=== PATIENT | female | born 1960 | race African-American/Black ===

== ENCOUNTER 2017-03-21 12:23 | Emergency (ER) | payer MEDICAID ==
[~2017-03-21] VITALS: Ht 160 cm; Wt 66.0 kg
[~2017-03-21 12:23] MED LIST: B50; HYDR-3515; SERT50TA; TRAM50TA3
[2017-03-21] MEDS ORDERED: LIDOCAINE HCL 1% 20ML VIAL (Pyxis) INJ MC ONE (13:00)
[2017-03-21] MEDS ORDERED: CEFTRIAXONE SODIUM 1 G/VIAL IM ONE (13:00)
[2017-03-21] MEDS ORDERED: METRONIDAZOLE 500MG TABLET PO ONE (13:15)
[2017-03-21] MEDS ORDERED: TETANUS, DIPHTHERIA, PERTUSSIS VAC/PF 0.5ML (>7YR OLD) IM ONE (13:30)
[2017-03-21 14:15] VITALS: BP 130/80
== END 2017-03-21 15:50 | disposition home or self-care (01) ==
LOC: ER 13:31
DX: S81.852A Open bite, left lower leg, initial encounter (principal); Y04.1XXA Assault by human bite, initial encounter; Y93.89 Activity, other specified; Y92.89 Other specified places as the place of occurrence of the external cause; Y99.8 Other external cause status; Z23 Encounter for immunization; F17.200 Nicotine dependence, unspecified, uncomplicated
CPT/HCPCS: 90471; 90715; 96372; 99284; J0696; J3490; Z7610

== ENCOUNTER 2018-01-30 20:38 | Emergency (ER) | payer MEDICAID ==
[~2018-01-30] VITALS: Ht 160 cm; Wt 67.0 kg
[2018-01-30 21:58] VITALS: BP 155/76
== END 2018-01-30 23:45 | disposition left against medical advice (07) ==
LOC: ER 23:24
DX: Z53.21 Procedure and treatment not carried out due to patient leaving prior to being seen by health care provider (principal)